=== PATIENT | male | born 1945 | race Caucasian/White ===

== ENCOUNTER → 2016-08-18 | Outpatient (CLI) | payer MEDICARE, BC ==
[~2016-08-18] MED LIST: ACIDOPHILUS PO; ALDACTONE 25MG25 M1 PO; ASPIRIN 32325 MG/TAB PO; CALCIUM CARBONATE PO; CRESTOR20 MG PO; DIUREX WATER PI1 TAB PO; FORADIL AERO0.012 MG IH; GLUCOPHAGE XR500 M1 PO; IMODIUM 2MG CAPS2 MG PO; LIPITOR 40MG TA40 MG PO; NIASPAN 500MG500 MG; NITROSTAT0.4 MG/TAB SL; PLAVIX 75MG TAB75 MG PO; PROSCAR 5MG5 MG PO; RT SPIRIVA18 MCG IH; SUPER EPA 1201200 MG PO; THEO-24 20200 MG/CAP PO; TOPROL XL100 MG PO; TYLENOL 500MG500 MG PO; ZANTAC 150MG T150 MG PO; [UNRECOGNIZED DRUG - OTHER]
== END ==
LOC: COL.RAD 09:15
DX: M51.16 Intervertebral disc disorders with radiculopathy, lumbar region (principal); M54.5 Low back pain

== ENCOUNTER → 2017-05-28 | Outpatient (CLI) | payer MEDICARE, BC | LOC: MHCPAIN 12:25 | DX: G89.29 Other chronic pain (principal); M47.817 Spondylosis without myelopathy or radiculopathy, lumbosacral region; M53.3 Sacrococcygeal disorders, not elsewhere classified; M96.1 Postlaminectomy syndrome, not elsewhere classified; Z87.891 Personal history of nicotine dependence | CPT/HCPCS: G0463 ==

== ENCOUNTER → 2017-06-21 | Outpatient (CLI) | payer MEDICARE, BC | LOC: MHCPAIN 09:06 | DX: M53.3 Sacrococcygeal disorders, not elsewhere classified (principal); Z98.1 Arthrodesis status | CPT/HCPCS: G0260; J1040; Q9967 ==

== ENCOUNTER → 2017-09-24 | Outpatient (CLI) | payer MEDICARE, BC | LOC: MHCPAIN 15:33 | DX: G89.29 Other chronic pain (principal); M47.817 Spondylosis without myelopathy or radiculopathy, lumbosacral region; M53.3 Sacrococcygeal disorders, not elsewhere classified; M96.1 Postlaminectomy syndrome, not elsewhere classified | CPT/HCPCS: G0463 ==

== ENCOUNTER → 2017-10-18 | Outpatient (CLI) | payer MEDICARE, BC | LOC: MHCPAIN 09:30 | DX: M47.817 Spondylosis without myelopathy or radiculopathy, lumbosacral region (principal); M96.1 Postlaminectomy syndrome, not elsewhere classified; M53.3 Sacrococcygeal disorders, not elsewhere classified | CPT/HCPCS: G0260; J1040; Q9967 ==

== ENCOUNTER → 2018-01-14 | Outpatient (CLI) | payer MEDICARE, BC | LOC: MHCPAIN 11:26 | DX: G89.29 Other chronic pain (principal); M47.817 Spondylosis without myelopathy or radiculopathy, lumbosacral region; M54.16 Radiculopathy, lumbar region; M53.3 Sacrococcygeal disorders, not elsewhere classified; M96.1 Postlaminectomy syndrome, not elsewhere classified; M47.814 Spondylosis without myelopathy or radiculopathy, thoracic region | CPT/HCPCS: G0463 ==

== ENCOUNTER → 2018-01-21 | Outpatient (CLI) | payer MEDICARE, BC | LOC: COL.PAINC 13:31 | DX: M47.817 Spondylosis without myelopathy or radiculopathy, lumbosacral region (principal); M96.1 Postlaminectomy syndrome, not elsewhere classified | CPT/HCPCS: J1040; Q9967 ==

== ENCOUNTER → 2018-01-21 | Outpatient (CLI) | payer MEDICARE, BC | LOC: MHCPAIN 12:37 → COL.PAINC 13:08 | DX: Z53.8 Procedure and treatment not carried out for other reasons (principal) ==

== ENCOUNTER → 2018-02-05 | Outpatient (CLI) | payer MEDICARE, BC | LOC: MHCPAIN 12:38 | DX: G89.29 Other chronic pain (principal); M47.817 Spondylosis without myelopathy or radiculopathy, lumbosacral region; M54.16 Radiculopathy, lumbar region; M53.3 Sacrococcygeal disorders, not elsewhere classified; M96.1 Postlaminectomy syndrome, not elsewhere classified | CPT/HCPCS: G0463 ==

== ENCOUNTER → 2018-02-14 | Outpatient (CLI) | payer MEDICARE, BC | LOC: MHCPAIN 11:10 | DX: M47.817 Spondylosis without myelopathy or radiculopathy, lumbosacral region (principal); M54.12 Radiculopathy, cervical region | CPT/HCPCS: J1100; Q9967 ==

== ENCOUNTER → 2018-04-16 | Outpatient (CLI) | payer MEDICARE, BC | LOC: MHCPAIN 09:29 | DX: G89.29 Other chronic pain (principal); M47.817 Spondylosis without myelopathy or radiculopathy, lumbosacral region; M54.16 Radiculopathy, lumbar region; M53.3 Sacrococcygeal disorders, not elsewhere classified; M96.1 Postlaminectomy syndrome, not elsewhere classified | CPT/HCPCS: G0463 ==

== ENCOUNTER → 2018-05-22 | Outpatient (CLI) | payer MEDICARE, BC | LOC: MHCPAIN 09:40 | DX: G89.29 Other chronic pain (principal); M47.817 Spondylosis without myelopathy or radiculopathy, lumbosacral region; M54.16 Radiculopathy, lumbar region; M53.3 Sacrococcygeal disorders, not elsewhere classified; M96.1 Postlaminectomy syndrome, not elsewhere classified | CPT/HCPCS: G0463 ==

== ENCOUNTER → 2018-09-18 | Outpatient (CLI) | payer MEDICARE, BC | LOC: MHCPAIN 13:50 | DX: G89.29 Other chronic pain (principal); M47.817 Spondylosis without myelopathy or radiculopathy, lumbosacral region; M54.16 Radiculopathy, lumbar region; M53.3 Sacrococcygeal disorders, not elsewhere classified; M48.061 Spinal stenosis, lumbar region without neurogenic claudication | CPT/HCPCS: G0463 ==

== ENCOUNTER → 2018-12-04 | Outpatient (CLI) | payer MEDICARE, BC | LOC: MHCPAIN 12:19 | DX: G89.29 Other chronic pain (principal); M47.817 Spondylosis without myelopathy or radiculopathy, lumbosacral region; M54.16 Radiculopathy, lumbar region; M53.3 Sacrococcygeal disorders, not elsewhere classified; M96.1 Postlaminectomy syndrome, not elsewhere classified | CPT/HCPCS: G0463 ==

== ENCOUNTER → 2018-12-19 | Outpatient (CLI) | payer MEDICARE, BC | LOC: COL.RAD 12-13 08:00 | DX: Z86.010 Personal history of colon polyps (principal) ==

== ENCOUNTER 2018-12-27 09:30 | Outpatient (RCR) | payer MEDICARE, BC | END 2018-12-27 10:03 | disposition home or self-care (01) | LOC: WSPT 09:30 | DX: M47.817 Spondylosis without myelopathy or radiculopathy, lumbosacral region (principal); M54.16 Radiculopathy, lumbar region; G89.29 Other chronic pain; M96.1 Postlaminectomy syndrome, not elsewhere classified; M53.3 Sacrococcygeal disorders, not elsewhere classified ==

== ENCOUNTER → 2019-03-05 | Outpatient (CLI) | payer MEDICARE, BC | LOC: MHCPAIN 12:22 | DX: G89.29 Other chronic pain (principal); M47.817 Spondylosis without myelopathy or radiculopathy, lumbosacral region; M54.16 Radiculopathy, lumbar region; M53.3 Sacrococcygeal disorders, not elsewhere classified; M96.1 Postlaminectomy syndrome, not elsewhere classified | CPT/HCPCS: G0463 ==

== ENCOUNTER → 2019-05-28 | Outpatient (CLI) | payer MEDICARE, BC | LOC: MHCPAIN 12:32 | DX: G89.29 Other chronic pain (principal); M47.817 Spondylosis without myelopathy or radiculopathy, lumbosacral region; M53.3 Sacrococcygeal disorders, not elsewhere classified; M96.1 Postlaminectomy syndrome, not elsewhere classified | CPT/HCPCS: G0463 ==

== ENCOUNTER → 2019-08-27 | Outpatient (CLI) | payer MEDICARE, BC | LOC: MHCPAIN 10:53 | DX: M53.3 Sacrococcygeal disorders, not elsewhere classified (principal); M47.817 Spondylosis without myelopathy or radiculopathy, lumbosacral region; M96.1 Postlaminectomy syndrome, not elsewhere classified | CPT/HCPCS: G0463 ==

== ENCOUNTER → 2019-11-25 | Outpatient (CLI) | payer MEDICARE, BC | LOC: MHCPAIN 10:42 | DX: M54.2 Cervicalgia (principal); R51 Headache; G89.29 Other chronic pain | CPT/HCPCS: G0463 ==

== ENCOUNTER → 2020-03-24 | Outpatient (CLI) | payer MEDICARE, BC | LOC: MHCPAIN 11:03 | DX: M47.817 Spondylosis without myelopathy or radiculopathy, lumbosacral region (principal); M54.5 Low back pain; M53.3 Sacrococcygeal disorders, not elsewhere classified; M96.1 Postlaminectomy syndrome, not elsewhere classified | CPT/HCPCS: G0463 ==

== ENCOUNTER → 2020-06-16 | Outpatient (CLI) | payer MEDICARE, BC | LOC: MHCPAIN 11:16 | DX: M47.817 Spondylosis without myelopathy or radiculopathy, lumbosacral region (principal); M54.5 Low back pain; M96.1 Postlaminectomy syndrome, not elsewhere classified; M53.3 Sacrococcygeal disorders, not elsewhere classified | CPT/HCPCS: G0463 ==

== ENCOUNTER → 2020-08-31 | Outpatient (CLI) | payer MEDICARE, BC | LOC: MHCPAIN 11:12 | DX: M47.817 Spondylosis without myelopathy or radiculopathy, lumbosacral region (principal); M96.1 Postlaminectomy syndrome, not elsewhere classified; M53.3 Sacrococcygeal disorders, not elsewhere classified; G89.29 Other chronic pain | CPT/HCPCS: G0463 ==

== ENCOUNTER → 2020-11-30 | Outpatient (CLI) | payer MEDICARE, BC | LOC: MHCPAIN 11:14 | DX: M47.817 Spondylosis without myelopathy or radiculopathy, lumbosacral region (principal); M53.3 Sacrococcygeal disorders, not elsewhere classified; M96.1 Postlaminectomy syndrome, not elsewhere classified; G89.29 Other chronic pain | CPT/HCPCS: G0463 ==

== ENCOUNTER → 2021-02-23 | Outpatient (CLI) | payer MEDICARE, BC | LOC: COL.RAD 09:29 | DX: Z12.2 Encounter for screening for malignant neoplasm of respiratory organs (principal); R91.1 Solitary pulmonary nodule; Z87.891 Personal history of nicotine dependence ==

== ENCOUNTER → 2021-03-01 | Outpatient (CLI) | payer MEDICARE, BC | LOC: MHCPAIN 11:15 | DX: M47.896 Other spondylosis, lumbar region (principal); M54.16 Radiculopathy, lumbar region; M96.1 Postlaminectomy syndrome, not elsewhere classified; M53.3 Sacrococcygeal disorders, not elsewhere classified | CPT/HCPCS: G0463 ==

== ENCOUNTER → 2021-05-31 | Outpatient (CLI) | payer MEDICARE, BC | LOC: MHCPAIN 11:11 | DX: M47.896 Other spondylosis, lumbar region (principal); M53.3 Sacrococcygeal disorders, not elsewhere classified; M96.1 Postlaminectomy syndrome, not elsewhere classified | CPT/HCPCS: G0463 ==

== ENCOUNTER 2021-06-29 15:51 | Emergency (ER) | payer MEDICARE, BC ==
[~2021-06-29] VITALS: Ht 177.8 cm; Wt 123.2 kg
[2021-06-29 16:02] VITALS: TEMP 98.8
[2021-06-29] MEDS ORDERED: AMOXICILLIN 8751 TAB PO (17:15)
[2021-06-29 17:16] VITALS: BP 151/89; PULSE 88
== END 2021-06-29 17:23 | disposition home or self-care (01) ==
LOC: COL.ER 15:51
DX: K11.20 Sialoadenitis, unspecified (principal); E11.9 Type 2 diabetes mellitus without complications; I10 Essential (primary) hypertension; E78.5 Hyperlipidemia, unspecified; Z79.84 Long term (current) use of oral hypoglycemic drugs; Z79.899 Other long term (current) drug therapy

== ENCOUNTER 2021-08-03 09:58 | Observation (INO) | payer MEDICARE, BC ==
[~2021-08-03] VITALS: Ht 177.8 cm; Wt 120.9 kg
[2021-08-03] VITALS (9 sets, daily range): BP systolic 100–144; BP diastolic 61–93; PULSE 85–93; TEMP 97.6–98.3
[~2021-08-03 09:58] MED LIST changes: +AMOXICILLIN 8751 TAB PO
[2021-08-03 10:21] LABS: HEMOGLOBIN 17.4 g/dl (13.5-18.0); MEAN CELL VOLUME 97 fl (80.0-100.0); MEAN CORPUSCULAR HEMOGLOBIN 32 pg (27-31); MEAN CORPUSCULAR HGB CONC 33 g/dl (33.0-37.0); MEAN PLATELET VOLUME 10.3 fl (7.4-10.4); PLATELET COUNT 205 K/mm3 (130-400); RED BLOOD COUNT 5.43 M/mm3 (4.20-5.60); REDCELL DISTRIBUTION WIDTH-CV 13.4 % (11.5-14.5)
[2021-08-03 10:22] LABS: HEMATOCRIT 52.8 % (42.0-52.0)
[2021-08-03] MEDS ORDERED: PRAVACHOL80 MG PO (10:33)
[2021-08-03 10:34] LABS: BILIRUBIN,TOTAL 0.5 mg/dL (0.2-1.2); CALCIUM 11.3 mg/dL (8.4-10.2); CREATININE, serum 1.03 mg/dL (0.72-1.25); POTASSIUM 4.1 mmol/L (3.5-4.5); TOTAL PROTEIN 7.5 gm/dL (6.2-8.1)
[2021-08-03] MEDS ORDERED: VICTOZA6 MG/ML SQ (10:35)
[2021-08-03] MEDS ORDERED: JARDIANCE10 PO (10:36)
[2021-08-03] MEDS ORDERED: LASIX 20MG TABL20 MG PO (10:37)
[2021-08-03] MEDS ORDERED: COZAAR100 MG PO (10:38)
[2021-08-03 10:39] LABS: TROPONIN-I 0.016 ng/mL (0.00-0.033)
[2021-08-03] MEDS ORDERED: NORCO 325 MG-51 TAB PO (10:39)
[2021-08-03 11:13] LABS: BAND 1 % (0-10); NEUTROPHILS 61 % (42.0-75.2)
[2021-08-03 11:14] LABS: LYMPHOCYTE 25 % (20.0-51.0)
[2021-08-03 11:15] LABS: PLATELET ESTIMATE NORMAL (NORMAL); STOMATOCYTE 1+
--- NOTE | 2021-08-03 13:57 | NUR ---
SEE MERGE FOR ALL MEDICATION ADMINISTRATION TIMES/DOSAGES AND INTRA/POST SEDATION ASSESSMENTS.
[2021-08-03] MEDS ORDERED: ANORO IH (15:57)
[2021-08-03] MEDS ORDERED: CLEOCIN HCL300 MG PO (15:57)
[2021-08-03] MEDS ORDERED: ASPIRIN 81M81 MG/TA2 PO (16:21)
[2021-08-03] MEDS ORDERED: TOPROL XL 50MG50 MG PO (16:21)
--- NOTE | 2021-08-03 19:47 | NUR ---
PT HAD UNEVENTFUL DAY. REPORT GIVEN TO SOFYA MALLOY.
--- NOTE | 2021-08-03 20:30 | NUR ---
Patient is resting in bed, alert and oriented x 4, VSS. Reports pain in back, headache and discomfort in arm. PRN will be provided. Telemetry in place, NSR, Assessment completed, medications provided. Air removed from radial band. No bleeding. No further needs at this time. Call light within reach.
[2021-08-04 00:49] VITALS: BP 131/70; PULSE 84; TEMP 97.6
[2021-08-04 04:02] VITALS: BP 115/70; PULSE 77; TEMP 97.4
--- NOTE | 2021-08-04 06:23 | NUR ---
Patient had a calm night. He had some headache, tylenol provided. No major issuees along the night. Report will be given to day shift nurse.
[2021-08-04 06:36] LABS: HEMATOCRIT 46.8 % (42.0-52.0); MEAN CELL VOLUME 101 fl (80.0-100.0); MEAN CORPUSCULAR HEMOGLOBIN 32 pg (27-31); MEAN CORPUSCULAR HGB CONC 32 g/dl (33.0-37.0); MEAN PLATELET VOLUME 10.9 fl (7.4-10.4); PLATELET COUNT 174 K/mm3 (130-400); RED BLOOD COUNT 4.65 M/mm3 (4.20-5.60); REDCELL DISTRIBUTION WIDTH-CV 13.5 % (11.5-14.5)
[2021-08-04 06:44] LABS: CALCIUM 9.4 mg/dL (8.4-10.2); CREATININE, serum 0.9 mg/dL (0.72-1.25); POTASSIUM 4.3 mmol/L (3.5-4.5)
[2021-08-04 08:00] VITALS: BP 145/75; PULSE 78; TEMP 97.6
--- NOTE | 2021-08-04 08:15 | NUR ---
Patient sitting up in bed watching TV. A&Ox4. VSS. IV CDI. Denies pain and discomfort. RT radial site CDI, bandaid applied. Independent in the room. No further needs expressed. Call light within reach
[2021-08-04 09:16] LABS: EOSINOPHIL 2 % (0-4); LYMPHOCYTE 14 % (20.0-51.0); NEUTROPHILS 77 % (42.0-75.2)
[2021-08-04 09:18] LABS: PLATELET ESTIMATE NORMAL (NORMAL)
[2021-08-04 09:19] LABS: HYPOCHROMIA 1+
--- NOTE | 2021-08-04 10:36 | NUR ---
Initial visit; Patient thanked Manager Nc for looking in on him and offering prayer and God's blessings.
--- NOTE | 2021-08-04 12:00 | NUR ---
Discharge paperwork reviewed with the patient and . Patient verbalized an understanding to follow doctors orders. IV removed, tip intact. Patient transfered by wheelchair to the ED entrance. No further needs expressed
== END 2021-08-04 12:15 | disposition home or self-care (01) ==
LOC: COL.ER 09:58 → MEDICAL 11:34
PROVIDERS: Personal Emergency Response Attendant; Physician Assistant; ADMIT Student in an Organized Health Care Education/Training Program
DX: R07.9 Chest pain, unspecified (principal); I10 Essential (primary) hypertension; G47.33 Obstructive sleep apnea (adult) (pediatric); R09.02 Hypoxemia; J44.9 Chronic obstructive pulmonary disease, unspecified; E78.5 Hyperlipidemia, unspecified; E11.9 Type 2 diabetes mellitus without complications; Z20.822 Contact with and (suspected) exposure to COVID-19; I25.10 Atherosclerotic heart disease of native coronary artery without angina pectoris; I70.0 Atherosclerosis of aorta; K11.20 Sialoadenitis, unspecified; R60.0 Localized edema; N40.0 Benign prostatic hyperplasia without lower urinary tract symptoms; Z79.84 Long term (current) use of oral hypoglycemic drugs; Z79.02 Long term (current) use of antithrombotics/antiplatelets; Z79.82 Long term (current) use of aspirin; Z79.899 Other long term (current) drug therapy; Z87.891 Personal history of nicotine dependence; Z95.5 Presence of coronary angioplasty implant and graft
CPT/HCPCS: 99239; C1769; C1887; G0378; J0153; J1644; J1650; J1815; J2250; J2270; J2405; J3010

== ENCOUNTER → 2024-05-06 | Outpatient (CLI) | payer MEDICARE, BC ==
[2004-05-10 12:37] VITALS: TEMP 97.4
[~2024-05-06] MED LIST changes: +ANORO IH; +ASPIRIN 81M81 MG/TA2 PO; +BRILINTA90 MG PO; -CALCIUM CARBONATE PO; +CLEOCIN HCL300 MG PO; +COZAAR100 MG PO; +FISH OIL1000 MG PO; -GLUCOPHAGE XR500 M1 PO; +GLUCOPHAGE500 MG/TAB PO; +JARDIANCE10 PO; +JARDIANCE25 PO; +LASIX 20MG TABL20 MG PO; +MOUNJARO5 MG/0.5 M SQ; +NITRO-DUR0.2 MG/PAT TD; +NORCO 325 MG-51 TAB PO; +PRAVACHOL80 MG PO; -SUPER EPA 1201200 MG PO; +TOPROL XL 50MG50 MG PO; +TUMS500 MG PO; +TYLENOL PM EXTR1 TA1 PO; +VICTOZA6 MG/ML SQ
== END ==
LOC: COL.RAD 13:16
DX: Z12.2 Encounter for screening for malignant neoplasm of respiratory organs (principal); R91.1 Solitary pulmonary nodule; Z87.891 Personal history of nicotine dependence